=== PATIENT | female | born 1950 | race Hispanic/Latino ===

== ENCOUNTER 2018-08-15 16:17 | Inpatient (IN) | payer MEDICARE ==
--- NOTE | 2018-08-15 16:52 | ED PDOC ---
Arrival/HPI - General Chief Complaint: Palpitations Historian: Patient - History of Present Illness Narrative History of Present Illness (Text): 08/15/18 16:49 68 y/o female, pmh including a.shirab with predm, nkda, c/o palpitation on and off x 10 days. Pt. stated that she has history of ablation done in 09/2016, had intermittent a.fibb since this year, started again 08/05/2018 which won't resolved, unable to see the pmd and the critical care unit manager so she came to the ER, stated that she took 2 doses of eliquis yesterday but none today after the her daughter RN told her to, no chest pain or shortness of breath, admits weightloss which she stated that she is on the diet, no numbness or tingling, no rash, no other medical or psychological complaints. Past Medical History - Provider Review Nursing Documentation Reviewed: Yes - Infectious Disease Hx of Infectious Diseases: None - Cardiac Hx Cardiac Disorders: Yes - Pulmonary Hx Respiratory Disorders: No - Neurological Hx Neurological Disorder: Yes Hx Dizziness: Yes - HEENT Hx HEENT Disorder: No - Renal Hx Renal Disorder: No - Endocrine/Metabolic Hx Endocrine Disorders: No - Hematological/Oncological Hx Blood Disorders: No Hx AIDS: No - Integumentary Hx Dermatological Disorder: No Hx Basal Cell Carcinoma: No - Musculoskeletal/Rheumatological Hx Musculoskeletal Disorders: No Hx Falls: No - Gastrointestinal Hx Gastrointestinal Disorders: No - Genitourinary/Gynecological Hx Genitourinary Disorders: No Other/Comment: C/S X 1 - Psychiatric Hx Psychophysiologic Disorder: No Hx Substance Use: No Other/Comment: ETOH SOCIALLY - Surgical History Hx Cardiac Catheterization: Yes (on october 2015 and was negative) Other/Comment: cardiac ablasion 09/2016 - Anesthesia Hx Anesthesia: Yes Hx Anesthesia Reactions: No Hx Malignant Hyperthermia: No Family/Social History - Physician Review Nursing Documentation Reviewed: Yes Family/Social History: Unknown Family HX Smoking Status: Never Smoked Hx Alcohol Use: Yes (SOCIALLY) Hx Substance Use: No Allergies/Home Meds Allergies/Adverse Reactions: Allergies No Known Allergies Allergy (Verified 05/28/16 20:13) Review of Systems - Review of Systems Constitutional: Weight Change. absent: Fatigue, Fevers Eyes: absent: Vision Changes ENT: absent: Hearing Changes Respiratory: absent: SOB, Cough Cardiovascular: Palpitations. absent: Chest Pain, Edema, Calf Pain, ELIZALDE, Orthopnea, Syncope Gastrointestinal: absent: Abdominal Pain, Nausea, Vomiting Skin: absent: Rash, Pruritis Psychiatric: absent: Anxiety, Depression, Suicidal Ideation Physical Exam Vital Signs Reviewed: Yes Vital Signs Temp Pulse Resp BP Pulse Ox 08/15/18 16:34 97.6 F 89 18 125/83 96 Temperature: Afebrile Blood Pressure: Normal Pulse: Regular Respiratory Rate: Normal Appearance: Positive for: Well-Appearing, Non-Toxic, Comfortable Pain Distress: None Mental Status: Positive for: Alert and Oriented X 3 - Systems Exam Head: Present: Atraumatic, Normocephalic Pupils: Present: PERRL Extroacular Muscles: Present: EOMI Conjunctiva: Present: Normal Mouth: Present: Moist Mucous Membranes Neck: Present: Normal Range of Motion Respiratory/Chest: Present: Clear to Auscultation, Good Air Exchange. No: Respiratory Distress, Accessory Muscle Use Cardiovascular: Present: Irregular Rhythm, Peripheal Pulses Present, Tachycardic, Other (2+ pedal edema noted on the bilateral LE. ). No: Murmurs, Bradycardic Abdomen: No: Tenderness, Distention, Peritoneal Signs Back: Present: Normal Inspection Upper Extremity: Present: Normal Inspection. No: Cyanosis, Edema Lower Extremity: Present: Normal Inspection. No: Edema Neurological: Present: GCS=15, CN II-XII Intact, Speech Normal, Motor Func Grossly Intact, Gait Normal, Memory Normal Skin: Present: Warm, Dry, Normal Color. No: Rashes Psychiatric: Present: Alert, Oriented x 3, Normal Insight, Normal Concentration Medical Decision Making ED Course and Treatment: 08/15/18 16:54 Hyperthryoidism vs. A.Fibb vs. CHF vs. NSTEMi -labs -ekg -cxr -engine monitor -pt. will need admission for IV cardizem and transfer to po titrate -observe and reassess 08/15/18 17:29 -Pt. refused guaiac exam and she has no bloody stool or dark color stool, no GI complaints. [id number] is 2, will need anticoagulation, IV heparin ordered 08/15/18 18:24 -EKG: A.Fibb with RVR @ 147 BPM, non specific ST changes, no ST elevation or depression, no T wave inversion. -Chest xray: ER wet read: +cardiomegally, no other active disease -Labs show no acute findings except K+ 3.4 (potassium chloride 20meq po ordered). -TSH/T4: within normal limit -Mg within normal limit -BNP 3070, IV lasix 20mg IV ordered as her BP is 120/70 -Trop is negative -IV herparin and cardizem drip ordered. -I discussed with the patient and the daughter (RN), awared of the result and agreed on the admission, she would need IV cardizem and echocardiogram with further critical care unit manager consult. -Pt. agreed to admission. -Dr. Youssef paged. 08/15/18 19:10 -I spoke to Dr. Barnes, covering for Dr. Youssef, discussed about the case/labs/radiology result, request to be admitted to Dr. Youssef service and order routine consult for Dr. Bear. - RAD Interpretation Radiology Orders: 08/15/18 16:47 CHEST PORTABLE [RAD] Stat Date of service: 08/15/2018 HISTORY: palpitation x 1 week COMPARISON: 05/28/2016 FINDINGS: LUNGS: No active pulmonary disease. PLEURA: No significant pleural effusion identified, no pneumothorax apparent. CARDIOVASCULAR: No atherosclerotic calcification present No radiographic findings to suggest acute or significant cardiovascular disease. OSSEOUS STRUCTURES: No significant abnormalities. VISUALIZED UPPER ABDOMEN: Normal. OTHER FINDINGS: None. IMPRESSION: No active disease. No significant interval change compared to the prior examination(s). Wood Drill Operator: Radiologist - EKG Interpretation EKG Interpretation (Text): 08/15/18 17:01 -EKG: A.Fibb with RVR @ 147 BPM, non specific ST changes, no ST elevation or depression, no T wave inversion. Interpreted by ED Physician: Yes Type: 12 lead EKG - Medication Orders Current Medication Orders: Diltiazem HCl (Cardizem) 20 mg IVP STAT STA Stop: 08/15/18 16:48 diltiaZEM IVPB 100mg in NS (Cardizem 100mg In Ns) 100 mls @ 5 mls/hr IV .Q20H PRN; Protocol PRN Reason: TITRATE PER MD ORDER - PA / REQUIREMENTS ENGINEER / Resident Statement MD/DO has reviewed & agrees with the documentation as recorded. Disposition/Present on Arrival - Present on Arrival Any Indicators Present on Arrival: No History of DVT/PE: No History of Uncontrolled Diabetes: No Urinary Catheter: No History of Decub. Ulcer: No History Surgical Site Infection Following: None - Disposition Have Diagnosis and Disposition been Completed?: Yes Diagnosis: Atrial fibrillation with rapid ventricular response, CHF (congestive heart failure), Hypokalemia Disposition: HOSPITALIZED Disposition Time: 17:01 Patient Plan: Admission, Observation Patient Problems: Current Active Problems Problem Status Onset Atrial fibrillation with rapid ventricular response Acute CHF (congestive heart failure) Acute Hypokalemia Acute Condition: GUARDED
--- NOTE | 2018-08-15 17:14 | RAD ---
Date of service: 08/15/2018 HISTORY: palpitation x 1 week COMPARISON: 05/28/2016 FINDINGS: LUNGS: No active pulmonary disease. PLEURA: No significant pleural effusion identified, no pneumothorax apparent. CARDIOVASCULAR: No atherosclerotic calcification present No radiographic findings to suggest acute or significant cardiovascular disease. OSSEOUS STRUCTURES: No significant abnormalities. VISUALIZED UPPER ABDOMEN: Normal. OTHER FINDINGS: None. IMPRESSION: No active disease. No significant interval change compared to the prior examination(s). Concordant results with the preliminary interpretation rendered by the emergency department physician procedure.
[2018-08-15 17:15] LABS: BASO # 0.03 K/mm3 (0.0-2.0); BASO % 0.3 % (0.0-3.0); EOS # 0.2 (0.0-0.7); EOS % 2.1 % (1.5-5.0); GRAN # 4.69 (1.4-6.5); HEMOGLOBIN 11.2 g/dL (12.0-16.0); LYMPH # 4.2 (1.2-3.4); LYMPH % 44.2 % (22.0-35.0); MEAN CELL VOLUME 86.6 fl (80.0-105.0); MEAN CORPUSCULAR HEMOGLOBIN 27.8 pg (25.0-35.0); MEAN CORPUSCULAR HGB CONC 32.1 g/dl (31.0-37.0); MEAN PLATELET VOLUME 9.6 fl (7.0-11.0); MONO # 0.4 (0.1-0.6); MONO % 4.4 % (1.0-6.0); RBC 4.03 10^6/uL (3.5-6.1); RED CELL DISTRIBUTION WIDTH 19.4 % (11.5-14.5); WHITE BLOOD COUNT 9.6 10^3/uL (4.5-11.0)
[2018-08-15 17:26] LABS: INR 1.5; PARTIAL THROMBOPLASTIN TIME 32.4 Seconds (25.1-36.5); PROTHROMBIN TIME 17.2 SECONDS (9.4-12.5)
[2018-08-15] MEDS: diltiaZEM IVPB 100mg in NS 100 ML IV PRN ×3 (17:27→20:49)
[2018-08-15] MEDS ORDERED: Heparin25000 units/250ml 1/2NS 25,000 UNITS/250 ML BAG IV PRN ×2 (17:27→17:35)
[2018-08-15 17:57] LABS: ALB/GLOB RATIO 1.1 (1.1-1.8); ALT/SGPT 49 U/L (7-56); AST/SGOT 50 U/L (14-36); BLOOD UREA NITROGEN 16 mg/dL (7-21); CALCIUM 9.1 mg/dL (8.4-10.5); GFR NON-AFRICAN AMERICAN > 60
[2018-08-15 18:05] LABS: FREE T4 1.74 ng/dL (0.78-2.19)
[2018-08-15 18:09] LABS: B-TYPE NATRIURETIC PEPTIDE 3070 pg/mL (0-450); TROPONIN I < 0.01 ng/mL
[2018-08-15] MEDS ORDERED: Potassium Chloride 20 mEq ER Tab PO STA (18:09)
--- NOTE | 2018-08-15 23:08 | HP ---
DATE OF EXAM: 08/15/2018 HISTORY OF PRESENT ILLNESS: The patient is a 68-year-old, patient of Dr. Youssef, came to the emergency room because of intermittent palpitations that has been going on for almost a week, started around Hitesh time. Denies any associated dizziness. Denies any chest pain. No history of fever or chills. No history of nausea, vomiting or abdominal pain. PAST MEDICAL HISTORY: Atrial fibrillation and she has ablation done in September of 2016. She has been well in between, but around Hitesh time it started again. She wanted to see Dr. Youssef, but he was not around, so she decided to come to emergency room. ALLERGIES: THE PATIENT IS NOT ALLERGIC TO ANY MEDICATIONS. MEDICATIONS AT HOME: She is on sotalol. She has been on aspirin 81 daily. The patient had some Eliquis that she took at home prior to coming to the hospital. SOCIAL HISTORY: Significant for alcohol , but denies smoking. PHYSICAL EXAMINATION GENERAL: The patient is awake, alert, oriented, communicative. VITAL SIGNS: She is afebrile. Pulse upon arrival was 148, respirations 18, blood pressure 118/75. LUNGS: Bilateral fair airflow. No rhonchi or crackle. HEART: S1 and S2 audible, regular, rate controlled. ABDOMEN: Soft, nontender. No rebound. No guarding. NEUROLOGIC: She is awake, alert, oriented, communicative. LABORATORY EXAM: WBC is 9.6, hemoglobin 11.2, hematocrit 34.9, platelets 248. PTT 17.2, INR 1.50. Chemistry; sodium 139, potassium 3.4, chloride 108, CO2 of 23, BUN 16, creatinine 0.6, blood sugar of 104. Total bilirubin 1.9, AST 50, ALT 49. Troponin 0.01. BNP . X-ray chest, no active disease. ASSESSMENT: 1. Rapid atrial fibrillation. 2. History of atrial fibrillation status post ablation. 3. Hypertension. PLAN: The patient is currently on Cardizem, we will continue that. She has been started on heparin, we will also continue that. Cardiology consult by Dr. Bear has been requested. We will follow up her electrolytes, CBC, CMP, thyroid profile in a.m. Leonides Barnes MD [facility] # [id number]
[2018-08-16 00:49] VITALS: BMI 29.4
[2018-08-16] MEDS: diltiaZEM IVPB 100mg in NS 100 ML IV PRN ×2 (00:49→09:27)
[2018-08-16 08:25] LABS: ALB/GLOB RATIO 1.1 (1.1-1.8); ALBUMIN 3.5 g/dL (3.0-4.8); ALT/SGPT 39 U/L (7-56); AST/SGOT 34 U/L (14-36); BLOOD UREA NITROGEN 13 mg/dL (7-21); CALCIUM 8.7 mg/dL (8.4-10.5); GFR NON-AFRICAN AMERICAN > 60; HDL CHOLESTEROL 33 mg/dL (29-60)
[2018-08-16 08:35] LABS: LDL CHOLESTEROL 92 mg/dL (0-129)
[2018-08-16] MEDS: Potassium Chloride 20 mEq ER Tab PO SCH (09:26)
[2018-08-16] MEDS: Verapamil 120 mg ER Tab PO SCH (09:26)
[2018-08-16 09:30] LABS: FREE T4 1.87 ng/dL (0.78-2.19)
--- NOTE | 2018-08-16 10:06 | CARD ---
APPROVED REPORT Date of service: 08/15/2018 EKG Measurement Heart [id number] <Conclusion> Atrial fibrillation with rapid ventricular response Rightward axis Nonspecific ST abnormality, probably digitalis effect Abnormal ECG
[2018-08-16] MEDS ORDERED: Digoxin 500 mcg/2ml (0.5 mg/2ml) Inj IV ONE (12:07)
--- NOTE | 2018-08-16 19:40 | CON ---
DATE: 08/16/2018 REQUESTING PHYSICIAN: Richard Youssef MD REASON FOR CONSULTATION: Atrial fibrillation. HISTORY OF PRESENT ILLNESS: This is a 68-year-old woman, well known to us from prior admissions, with a history of paroxysmal atrial fibrillation and SVT, for which she underwent radiofrequency ablation in 2017. Over the past several days, she has had several episodes of palpitations. She presents to the emergency room and was noted to be in atrial fibrillation with rapid ventricular response. She was started on IV Cardizem and heparin. She does have exertional dyspnea with her symptoms, but denied any chest pain. Prior workup details are unclear. PAST MEDICAL HISTORY: Her past history is notable for the problems mentioned above. MEDICATIONS: IV heparin, IV diltiazem, and oral verapamil has been instituted. IV Lasix has been given as well. ALLERGIES: NONE. SOCIAL HISTORY: She drinks socially. She denies tobacco abuse. FAMILY HISTORY: Unremarkable for premature heart disease. REVIEW OF SYSTEMS: A 10-point review of systems is unremarkable. PHYSICAL EXAMINATION: GENERAL: She is a middle-aged woman, who appears comfortable at the present time. VITAL SIGNS: Her blood pressure is 100/66 with a pulse of 90 to 130, respirations are 14. She is in atrial fibrillation. Respirations are 16. She is afebrile. HEENT: Normocephalic, atraumatic. NECK: Supple. No JVD noted. CHEST: Few scattered rhonchi heard. HEART: Rhythm is irregularly irregular with no pathological murmurs or gallops noted. ABDOMEN: Soft, nontender, normoactive bowel sounds. EXTREMITIES: No clubbing, cyanosis, or edema. SKIN: Warm and dry. PSYCHIATRIC: Normal mood and affect. NEUROLOGIC: Alert and oriented x3. No gross motor or sensory deficits noted. DIAGNOSTIC DATA: Potassium is 3.1, which has been replaced. BUN and creatinine are 13 and 0.9, white count 9.6, hemoglobin and hematocrit are 11.2 and 34.9 with a platelet count of 248,000. PTT is 120. Bilirubin 2. TSH 2.02. Cholesterol 149 with an HDL of 33 and LDL of 92. Electrocardiogram reveals atrial fibrillation with rapid ventricular response and secondary ST-T changes. Chest x-ray reveals normal cardiac silhouette with clear lung cesar. IMPRESSION: 1. Recurrent atrial fibrillation with suboptimal rate control. 2. History of supraventricular tachycardia, status post prior ablation. 3. Elevated BNP with clear lungs possibly related to tachyarrhythmia. RECOMMENDATIONS: Oral verapamil continue for now. Digoxin loading will occur as well for rate control. Eliquis will be resumed, and heparin will be discontinued. Old records will be reviewed. Her doctor told that her security architect will be contacted and consideration may be given to a repeat ablation therapy; if she remains in atrial fibrillation, electrocardioversion can be considered as well. Thank you for this consultation. I will be happy to follow along through her hospital course. Gregory Ortiz MD
--- NOTE | 2018-08-16 22:03 | PN ---
DATE: 08/16/2018 SUBJECTIVE: The patient is a 68-year-old, seen and examined, doing a lot better. Denies any nausea or vomiting. She states her palpitation is much better. No dizziness. PHYSICAL EXAMINATION VITAL SIGNS: She is afebrile, pulse 78, respirations 19, blood pressure today 108/78. LUNGS: Bilateral fair airflow. No rhonchi or crackle. HEART: S1, S2 audible, irregular, rate controlled. ABDOMEN: Soft. Nontender. No rebound. No guarding. NEUROLOGIC: The patient is awake, alert, oriented, communicative. LABORATORY DATA: Sodium 140, potassium 3.1, chloride 108, CO2 of 27, BUN 13, creatinine 0.6, blood sugar 103. X-ray of the chest shows no active disease. TSH is 2.02, T4 is 1.87. ASSESSMENT: 1. History of atrial fibrillation, status post ablation procedure 2 years ago. The patient states she was having intermittent atrial fibrillation, but 2 days ago she started to have rapid atrial fibrillation, came to the ER, was started on Cardizem drip, now on p.o. Cardizem, doing well. 2. History of hypertension. 3. Congestive heart failure. PLAN: The patient is started on verapamil 120 daily. Heparin is discontinued. The patient is on Eliquis 5 mg twice a day. Potassium is being supplemented. Digoxin has been started. We will reevaluate the patient in a.m. and possible discharge in a.m. once she is stabilized. Dr. Youssef will follow up the patient in a.m. Leonides Barnes MD
[2018-08-17] MEDS: Potassium Chloride 20 mEq ER Tab PO SCH (09:36)
[2018-08-17] MEDS: Magnesium Oxide 400 mg Tab UD PO SCH ×2 (09:37→17:37)
[2018-08-17] MEDS: Verapamil 120 mg ER Tab PO SCH (09:39)
--- NOTE | 2018-08-17 10:32 | PN ---
DATE: 08/17/2018 SUBJECTIVE: This is 68-year-old white female admitted to the hospital with atrial fibrillation, history of atrial fibrillation in the past, status post ablation in the past. The patient had been doing well until recently when she developed palpitation and shortness of breath. The patient was found to have elevated BNP and rapid atrial fibrillation. The patient was seen in consultation with Dr. Ortiz. She is on Digoxin and verapamil. Potassium is 3.1, magnesium will be replenished, potassium has been replenished. She is also on verapamil trying to control heart rate. She also was started on Eliquis. The patient is stable. She is without complaints. Heart rate still 119 and irregular today. Chest is clear to auscultation and percussion. Extremities without cyanosis, clubbing or edema. Richard Youssef MD
[2018-08-17] MEDS: Digoxin 250 mcg (0.25 mg) Tab PO SCH (14:05)
[2018-08-18] MEDS ORDERED: Digoxin 500 mcg/2ml (0.5 mg/2ml) Inj IV ONE (08:44)
[2018-08-18] MEDS: Magnesium Oxide 400 mg Tab UD PO SCH ×2 (09:25→18:07)
--- NOTE | 2018-08-18 13:43 | PN ---
DATE: 08/18/2018 SUBJECTIVE: A 68-year-old white female admitted to the hospital with likely atrial fibrillation. The patient is on digoxin and Cardizem, being switched to verapamil. The patient is still tachycardic and irregular with heart rates in the 120s. The patient was seen in consultation by Dr. Ortiz. The patient is continuing workup. We will discharge when her heart rate is less than 100. She will need to follow up with for a repeat ablation. PHYSICAL EXAMINATION: VITAL SIGNS: Stable. CHEST: Clear to auscultation. HEART: Regular rhythm with rapid ventricular response. Richard Youssef MD
--- NOTE | 2018-08-18 14:11 | PN ---
DATE: 08/18/2018 SUBJECTIVE: The patient is seen lying in bed on telemetry and she remains in atrial fibrillation and her rate is not well controlled with the heart rate ranging from 110 to 130. She remains on digoxin and verapamil. MEDICATIONS: Include Eliquis 5 mg two times daily, Lasix 40 mg IV daily, potassium 40 mEq daily, and magnesium supplements. OBJECTIVE: GENERAL: She is a middle-aged woman who appears comfortable at rest. VITAL SIGNS: Her blood pressure is 112/80 with a pulse of 120 in atrial fibrillation, respirations is 16. She is afebrile. HEENT: No JVD. CHEST: Bilateral scattered rhonchi. HEART: Rhythm is irregularly irregular with systolic murmur at the left sternal border. ABDOMEN: Soft, nontender, normoactive bowel sounds. EXTREMITIES: No edema. DIAGNOSTIC DATA: Morning blood work is pending. IMPRESSION: 1. Recurrent atrial fibrillation, now persistent with suboptimal heart rate control. 2. History of prior supraventricular tachycardia ablation. 3. Elevated brain-type natriuretic peptide possibly due to tachyarrhythmia. RECOMMENDATIONS: Oral verapamil will be discontinued and oral Cardizem will be started at moderate dose, digoxin will be continued for now, Eliquis will be continued as well. We will arrange outpatient followup with Dr. Siddiqui her electrical design technician will be scheduled to consider ablation therapy in the future if needed. A repeat BNP is planned as well. Gregory Ortiz MD
[2018-08-18] MEDS: Digoxin 250 mcg (0.25 mg) Tab PO SCH (14:26)
[2018-08-18 14:28] VITALS: PULSE 97
[2018-08-19 01:50] VITALS: O2SAT 95
[2018-08-19] MEDS: Magnesium Oxide 400 mg Tab UD PO SCH (08:25)
--- NOTE | 2018-08-19 08:38 | PN ---
DATE: 08/19/2018 SUBJECTIVE: The patient is seen lying in bed on telemetry. She is currently comfortable. Heart rate control is improved. CURRENT MEDICATIONS: Include diltiazem 60 mg 4 times a day, Eliquis 5 mg b.i.d., digoxin 0.25 mg daily, and magnesium supplements. OBJECTIVES: GENERAL: She is a middle-aged woman who appears comfortable at rest. VITAL SIGNS: Blood pressure is 94/60 with a pulse of 80 and 90, and respirations are 16. She is afebrile. HEENT: No JVD. CHEST: Clear to auscultation and percussion. HEART: Rhythm is irregularly irregular. ABDOMEN: Soft, nontender with bowel sounds. EXTREMITIES: No edema. DIAGNOSTIC DATA: No blood work pending this morning. IMPRESSION: 1. Recurrent atrial fibrillation with improved heart rate control. 2. History of supraventricular tachycardia, status post ablation in the past. RECOMMENDATIONS: Oral Cardizem will be switched to once daily preparation, and digoxin and Eliquis, we will continue for now. From a cardiac standpoint, she appears stable for discharge home today with outpatient followup. Gregory Ortiz MD
[2018-08-19] MEDS ORDERED: diltiaZEM 240 mg/24 Hours CD Cap PO SCH (10:00)
[2018-08-19 12:42] VITALS: BP 97/49; PULSE 77; RESP 21; TEMP 98.6
--- NOTE | 2018-08-19 14:07 | DS ---
HISTORY OF PRESENT ILLNESS: A 68-year-old white female, admitted to the hospital with rapid atrial fibrillation. The patient has history of atrial fibrillation in the past, history of ablation in the past. The patient was seen in consultation . The patient was started on verapamil and switched to Cardizem, and digoxin was added. The patient was started on Eliquis for anticoagulation. The patient eventually had a heart rate drop into the 80s. Vital signs are stable. Blood pressure is down to 94/60. The patient has no more shortness of breath and no palpitations. The patient will be followed as an outpatient. She will follow up with for possible re-ablation. The patient will be discharged on home same medications including Eliquis, Cardizem, digoxin and mag oxide. FINAL DISCHARGE DIAGNOSES: Rapid atrial fibrillation. The patient has history of atrial fibrillation in past. Richard Youssef MD
== END 2018-08-19 13:43 | disposition home or self-care (01) | DRG 310 ==
LOC: ED 16:17 → ERH 19:07 → 2RNO 21:57 → OBSVTOIN 08-18 16:14
PROVIDERS: ADMIT Internal Medicine; ATTEND Internal Medicine
DX: I48.0 Paroxysmal atrial fibrillation (principal); I11.0 Hypertensive heart disease with heart failure; I50.9 Heart failure, unspecified; I47.1 Supraventricular tachycardia; R73.03 Prediabetes; R00.2 Palpitations; E87.6 Hypokalemia; Z79.82 Long term (current) use of aspirin

== ENCOUNTER 2018-12-01 06:02 | Outpatient (CLI) | payer MEDICARE | END 2018-12-01 06:03 | disposition home or self-care (01) | LOC: CARDIO 06:02 | DX: R07.9 Chest pain, unspecified (principal) ==